=== PATIENT | female | born 1940 | race Two or more races ===

== ENCOUNTER 2021-06-11 09:15 | Outpatient (CLI) | payer OTHER | END 2021-06-11 09:32 | disposition home or self-care (01) | LOC: MRI 09:15 | PROVIDERS: ATTEND Orthopaedic Surgery | DX: M17.12 Unilateral primary osteoarthritis, left knee (principal); M25.562 Pain in left knee; M25.561 Pain in right knee; M75.121 Complete rotator cuff tear or rupture of right shoulder, not specified as traumatic; M25.511 Pain in right shoulder | CPT/HCPCS: 73721 ==

== ENCOUNTER 2021-08-03 14:03 | Inpatient (IN) | payer OTHER ==
[~2021-08-03] VITALS: Ht 152.4 cm; Wt 81.6 kg
[2021-08-03] MEDS ORDERED: METOPROLOL TART50 MG PO (14:33)
[2021-08-03] MEDS ORDERED: ELIQUIS2.5 MG PO (14:33)
[2021-08-03] MEDS ORDERED: LOSARTAN POTASS25 MG PO (14:36)
[2021-08-03] MEDS ORDERED: FERROUS SULFAT325 MG PO (14:36)
[2021-08-04] MEDS ORDERED: ADVIL200 M1 (09:04)
[2021-08-04] MEDS ORDERED: AMLODIPINE BESYL5 MG (09:04)
[2021-08-04] MEDS ORDERED: ARTHRITIS PAIN650 MG (09:04)
[2021-08-04] MEDS ORDERED: PANTOPRAZOLE SO40 MG (09:04)
[2021-08-04] MEDS ORDERED: CLEAR EYES REDN30 ML (09:04)
== END 2021-08-07 12:36 | disposition home or self-care (01) | DRG 310 ==
LOC: ER 14:03 → ICU-2 20:56 → ICU 20:56
PROVIDERS: ADMIT Internal Medicine; ATTEND Internal Medicine
PROC: B24BZZZ Ultrasonography of Heart with Aorta (ICD-10-PCS; principal; 2021-08-03)
DX: I48.91 Unspecified atrial fibrillation (principal); I50.9 Heart failure, unspecified; Z20.822 Contact with and (suspected) exposure to COVID-19; I34.0 Nonrheumatic mitral (valve) insufficiency; I11.0 Hypertensive heart disease with heart failure

== ENCOUNTER 2023-08-02 07:30 | Outpatient (CLI) | payer OTHER ==
[~2023-08-02 07:30] MED LIST: ADVIL200 M1; AMLODIPINE BESYL5 MG; ARTHRITIS PAIN650 MG; CLEAR EYES REDN30 ML; ELIQUIS2.5 MG PO; FERROUS SULFAT325 MG PO; LOSARTAN POTASS25 MG PO; METOPROLOL TART50 MG PO; PANTOPRAZOLE SO40 MG
== END 2023-08-02 07:32 | disposition home or self-care (01) ==
LOC: NUCLEAR 07:30
PROVIDERS: ATTEND Internal Medicine Cardiovascular Disease
DX: I25.10 Atherosclerotic heart disease of native coronary artery without angina pectoris (principal)
CPT/HCPCS: 78452; 93017; A9500; J0153

== ENCOUNTER → 2024-07-30 | Outpatient (CLI) | payer OTHER | END | disposition home or self-care (01) | LOC: NUCLEAR 07:52 | PROVIDERS: ATTEND Internal Medicine | DX: I50.9 Heart failure, unspecified (principal) ==

== ENCOUNTER 2024-10-11 13:24 | Outpatient (CLI) | payer OTHER | END 2024-10-11 13:25 | disposition home or self-care (01) | LOC: NUCLEAR 13:24 | PROVIDERS: ATTEND General Practice | DX: M81.0 Age-related osteoporosis without current pathological fracture (principal) ==

== ENCOUNTER 2024-11-06 08:08 | Outpatient (CLI) | payer OTHER | END 2024-11-06 08:09 | disposition home or self-care (01) | LOC: NUCLEAR 08:08 | PROVIDERS: ATTEND Internal Medicine | DX: I20.9 Angina pectoris, unspecified (principal) | CPT/HCPCS: 78452; 93017; A9500 ==

== ENCOUNTER 2025-02-15 10:59 | Outpatient (CLI) | payer OTHER | END 2025-02-15 11:15 | disposition home or self-care (01) | LOC: TOM 10:59 | PROVIDERS: ATTEND Internal Medicine Pulmonary Disease | DX: R06.02 Shortness of breath (principal) ==